=== PATIENT | male | born 1980 | race African-American/Black ===

== ENCOUNTER 2024-02-04 04:06 | Emergency (ER) | payer MEDICAID, OTHER ==
[~2024-02-04] VITALS: Ht 180.3 cm; Wt 72.0 kg
[2024-02-04 04:25] VITALS: BP 153/78
[2024-02-04 04:40] VITALS: PULSE 81; RESP 20; O2SAT 97
[2024-02-04] MEDS ORDERED: IBUP-1456 PO (05:28)
[2024-02-04] MEDS: KETOROLAC TROMETH 60MG/2ML VIAL IM ONE (05:33)
== END 2024-02-04 05:38 | disposition home or self-care (01) ==
LOC: ER 04:06
DX: S39.012A Strain of muscle, fascia and tendon of lower back, initial encounter (principal); V98.8XXA Other specified transport accidents, initial encounter; Y93.55 Activity, bike riding; Y92.488 Other paved roadways as the place of occurrence of the external cause; Y99.8 Other external cause status
CPT/HCPCS: 96372; 99283; J1885

== ENCOUNTER 2024-04-09 22:22 | Emergency (ER) | payer MEDICAID ==
[~2024-04-09] VITALS: Ht 180.3 cm; Wt 79.0 kg
[~2024-04-09 22:22] MED LIST: IBUP-1456 PO
[2024-04-09 22:30] VITALS: BP 135/91; PULSE 108; RESP 20; TEMP 99.1; O2SAT 99
--- NOTE | 2024-04-09 23:00 | ED.PDOC ---
History of Present Illness HPI Comments 44-year-old male who came to ER for flu-like symptoms. Patient states flu-like symptoms since last night, with fever, chills, nasal congestion, muscle and joint pains, cough, weakness. Patient was mildly tachycardic at arrival.. Patient denies any recent travel or new food sources. Chief Complaint: Flu like Time Seen by MD: 23:00 Primary Care Provider: UNKNOWN Reviewed Notes: Nurses Notes Allergies: Coded Allergies: NO KNOWN ALLERGIES (Unverified , 02/04/24) Home Meds Active Scripts Benzonatate (Benzonatate) 100 Mg Cap, 1 CAP PO TID, #20 CAP Prov:LAYNE RAM PAC 04/10/24 Acetaminophen (Acetaminophen) 500 Mg Tab, 500 MG PO Q4HP PRN, #30 TAB Prov:LAYNE RAM PAC 04/10/24 Oseltamivir Phosphate (Tamiflu) 75 Mg Cap, 75 MG PO BID for 5 Days, #10 CAP Prov:LAYNE RAM [facility] 04/10/24 Ibuprofen (Ibuprofen) 800 Mg Tab, 1 TAB PO TID PRN, #30 TAB 0 Refills Prov:VANESSA TRACY 02/04/24 Information Source: Patient Mode of Arrival: Ambulatory Severity: Moderate Timing: Hours Duration: Since onset Prehospital treatment: None Past Medical History PAST MEDICAL HISTORY: Denies Surgical History: Denies all surgeries Family History Family History: Reviewed,noncontributory to illness Social History Smoker: Non-Smoker Alcohol: Denies ETOH Use Drugs: Denies Drug Use Lives In: Home Constitutional: reports: chills, fatigue, fever, malaise, weakness EENTM: reports: nose congestion; denies: blurred vision, double vision, ear bleeding, ear discharge, ear drainage, ear pain, ear ringing, eye pain, eye redness, hearing loss, mouth pain, mouth swelling, nasal discharge, nose bleeding, nose pain, photophobia, tearing, throat pain, throat swelling, voice changes, others Respiratory: reports: cough; denies: hemoptysis, orthopnea, SOB at rest, sita rtness of breath, SOB with excertion, stridor, wheezing, others Cardiovascular: denies: chest pain, dizzy spells, diaphoresis, Dyspnea on exertion, edema, irregular heart beat, left arm pain, lightheadedness, palpitations, PND, syncope, others Gastrointestinal: denies: abdomen distended, abdominal pain, blood streaked bowels, constipated, diarrhea, dysphagia, difficulty swallowing, hematemesis, melena, nausea, poor appetite, poor fluid intake, rectal bleeding, rectal pain, vomiting, others Genitourinary: denies: burning, dysuria, flank pain, frequency, hematuria, inco ntinence, penile discharge, penile sore, pain, testicle pain, testicle swelling, urgency, others Neurological: denies: dizziness, fainting, headache, left sided numbness, left sided weakness, numbness, paresthesia, pre-existing deficit, right sided numbness, right sided weakness, seizure, speech problems, tingling, tremors, weakness, others Musculoskeletal: denies: back pain, gout, joint pain, joint swelling, muscle pain, muscle stiffness, neck pain, others Integumetry: denies: bruises, change in color, change in hair/nails, dryness, laceration, lesions, lumps, rash, wounds, others Allergic/Immunocompromised: denies: Difficulty Healing, Frequent Infections, Hives, Itching, others Hematologic/Lymphatic: denies: anemia, blood clots, easy bleeding, easy bruising, swollen glands, others Endocrine: denies: excessive hunger, excessive sweating, excessive thirst, excessive urination, flushing, intolerance to cold, intolerance to heat, unexplained weight gain, unexplained weight loss, others Psychiatric: denies: anxiety, bipolar disorder, depression, hopeless, panic disorder, schizophrenia, sleepless, suicidal, others Physical Exam General Appearance: Mild Distress, Normal HEENT: Pharynx Normal, TMs Normal, Other ([place]) Neck: Full Range of Motion, Non-Tender, Normal, Normal Inspection Respiratory: Chest Non-Tender, Lungs Clear, No Accessory Muscle Use, No Respiratory Distress, Normal Breath Sounds Cardiovascular: No Edema, No JVD, No Murmur, No Gallop, Normal Peripheral Pulses, Regular Rate/Rhythm Breast Exam: Deferred Gastrointestinal: No Organomegaly, Non Tender, No Pulsatile Mass, Normal Bowel Sounds, Soft Genitalia: Deferred Pelvic: Deferred Rectal: Deferred Extremities: No calf tenderness, Normal capillary refill, Normal inspection, Normal range of motion, Non-tender, No pedal edema Musculoskeletal : Apperance: Normal Neurologic: Alert, No Motor Deficits, Normal Affect, Normal Mood, No Sensory Deficits Cerebellar Function: Normal Reflexes: Normal Skin: Dry, Normal Color, Warm Lymphatic: No Adenopathy Was a procedure done? Was a procedure done?: No Differential Dx Considerations may include: Anemia, electrolyte imbalance, influenza, viral syndrome, COVID-19 X-Ray, Labs, Meds, VS Vital Signs Date Time Temp Pulse Resp B/P (MAP) Pulse Ox O2 Delivery O2 Flow Rate FiO2 04/10/24 00:08 Room Air 04/09/24 22:30 20 99 Room Air* 0 21 04/09/24 22:30 99.1 108 20 135/91 (106) 99 04/09/24 22:30 99.1 108 20 135/91 (106) 99 99.1 Lab Test 04/09/24 22:35 Range/Units Influenza Type A Antigen Positive Negative Influenza Type B Antigen Negative Negative SARS-CoV-2 Antigen (Rapid) Negative NEGATIVE X-Ray, Labs, Meds, VS Comment All studies performed the ED were evaluated by me. Swabs studies confirmed an influenza a diagnosis. Advised patient utilize Tamiflu as well as additional medication as needed. Time of 1ST Reevaluation: 00:05 Reevaluation 1ST: Unchanged Consultation: PCP Patient Education/Counseling: Diagnosis, Treatment Family Education/Counseling: Diagnosis, Treatment, No Family Present Departure 1 Departure Time of Disposition: 00:05 Impression: Primary Impression: Influenza A Disposition: 01 HOME / SELF CARE / HOMELESS Condition: Stable Additional Instructions: Advised patient utilize Tamiflu as directed until completion as well as additional medication as needed for symptomatic relief. Patient should practice good hydration and healthy nutrition throughout illness event. e-Prescriptions Benzonatate (Benzonatate) 100 Mg Cap 1 CAP PO TID, #20 CAP Prov: LAYNE RAM PAC 04/10/24 Acetaminophen (Acetaminophen) 500 Mg Tab 500 MG PO Q4HP PRN, #30 TAB Prov: LAYNE RAM PAC 04/10/24 Oseltamivir Phosphate (Tamiflu) 75 Mg Cap 75 MG PO BID for 5 Days, #10 CAP Prov: LAYNE RAM PAC 04/10/24 Discharged With: Self, Friend Critical Care Note Critical Care Time?: No Stability Stability form required: No Heart Score Heart Score: Heart Score Response (Comments) Value History N/A 0 EKG N/A 0 Age N/A 0 Risk Factors N/A 0 Troponin N/A 0 Total 0 I personally scribed for LAYNE RAM PAC ([email or web address]) on 04/09/24 at 23:00. Electronically submitted by Adonay Colón ([facility]). LAYNE RAM Apr 09, 2024 23:00 DONOVAN HERR MD Apr 10, 2024 02:54
[2024-04-09 23:53] LABS: COVID19 ANTIGEN SOFIA FIA NEGATIVE (NEGATIVE)
[2024-04-09 23:57] LABS: Rapid Influenza B Negative (Negative)
[2024-04-09 23:59] LABS: Rapid Influenza A Positive (Negative)
[2024-04-10] MEDS ORDERED: ACET500T58 PO (00:06)
[2024-04-10] MEDS ORDERED: BENZ100C97 PO (00:06)
[2024-04-10] MEDS ORDERED: TAMIFLU PO (00:06)
== END 2024-04-10 00:15 | disposition home or self-care (01) ==
LOC: ER 22:22
DX: J10.1 Influenza due to other identified influenza virus with other respiratory manifestations (principal); Z20.822 Contact with and (suspected) exposure to COVID-19; Z79.899 Other long term (current) drug therapy
CPT/HCPCS: 36415; 87426; 87804

== ENCOUNTER 2024-05-03 21:39 | Emergency (ER) | payer MEDICAID ==
[~2024-05-03 21:39] MED LIST changes: +ACET500T58 PO; +BENZ100C97 PO; +TAMIFLU PO
== END 2024-05-03 23:06 | disposition left against medical advice (07) ==
LOC: ER 21:39
DX: M54.50 Low back pain, unspecified (principal); Z53.21 Procedure and treatment not carried out due to patient leaving prior to being seen by health care provider